=== PATIENT | male | born 1955 | race Hispanic/Latino ===

== ENCOUNTER 2016-12-15 14:50 | Outpatient (CLI) | payer MEDICAID ==
--- NOTE | 2016-12-16 09:20 | Ultrasound Report ---
Complete abdominal exam: Abdominal pain/nausea. Images of the liver demonstrates a 13 mm discrete hyperechogenic area in the lateral right lobe. A somewhat less discrete area of echogenicity is identified in superior right lobe measuring approximately 26 mm in size. The spleen is slightly prominent in size but otherwise unremarkable. The pancreas is echogenic but otherwise normal. There is some question of mild echogenicity layering in the gallbladder that may represent sludge. The gallbladder is not otherwise remarkable. The transverse diameter of the CBD is 5 mm. The right renal length is 11.5 cm. There is a small cortical cyst measuring 1 cm. The left renal length is 13.5 cm. Both kidneys are otherwise echogenically unremarkable. Transverse diameter of the proximal abdominal aorta is 2.4 cm. Impressions: 1. The echogenic liver foci are consistent with hemangiomas. 2. Fatty pancreas. Recommendation: Three-phase CT scan to confirm hemangiomas of the liver.
== END 2016-12-15 14:51 | disposition home or self-care (01) ==
LOC: US 14:50
PROVIDERS: ATTEND Nurse Practitioner Family
DX: N28.1 Cyst of kidney, acquired (principal); K86.89 Other specified diseases of pancreas
CPT/HCPCS: 76700

== ENCOUNTER 2019-04-22 18:05 | Emergency (ER) | payer MEDICAID, OTHER ==
[2019-04-22 19:58] VITALS: BP 147/77
[2019-04-22] MEDS ORDERED: IBUPROFEN PO ONE (21:14)
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
== END 2019-04-22 21:22 | disposition left against medical advice (07) ==
LOC: ED 18:05
DX: Z04.1 Encounter for examination and observation following transport accident (principal); Z53.21 Procedure and treatment not carried out due to patient leaving prior to being seen by health care provider

== ENCOUNTER 2020-06-12 19:20 | Emergency (ER) | payer MEDICAID ==
[2020-06-12 21:08] LABS: BUN/Creatinine Ratio 14; Blood Urea Nitrogen 11 mg/dL (9-20); Calcium 8.9 mg/dL (8.4-10.2); Hemolysis Index 24
[2020-06-12 21:13] LABS: Basophils % (Auto) 0.5 % (0.0-1.8); Eosinophils # (Auto) 0.2 K/mm3 (0.0-0.4); Eosinophils % (Auto) 4.2 % (0.0-4.3); Hematocrit 44.6 % (35.5-45.6); Hemoglobin 15.5 gm/dl (11.8-15.2); Lymphocytes # (Auto) 1.7 K/mm3 (1.2-5.4); Lymphocytes % (Auto) 33.5 % (13.4-35.0); Mean Corpuscular HGB Conc 35 % (32-34); Mean Corpuscular Volume 89 fl (84-94); Monocytes # (Auto) 0.3 K/mm3 (0.0-0.8); Monocytes % (Auto) 5.4 % (0.0-7.3); Platelet Count 199 K/mm3 (140-440); Red Blood Count 5.02 M/mm3 (3.65-5.03); Red Cell Distribution Width 14.2 % (13.2-15.2)
[2020-06-12] MEDS ORDERED: SODIUM CHLORIDE 0.9% 1000 ML 1,000 ML IV ONE ×2 (21:18)
[2020-06-12] MEDS ORDERED: INSULIN REGULAR, HUMAN 100 UNIT/ML 3ML VIAL IV ONE (21:19)
[2020-06-12] MEDS ORDERED: INSULIN REGULAR, HUMAN 100 UNITS/1 ML ONE (21:30)
[2020-06-12] MEDS ORDERED: HYDROcodone/ACETAMINOPHEN 5-325 MG TAB PO ONE (21:43)
[2020-06-12 22:48] LABS: Bilirubin,Urine NEG (Negative); Blood,Urine NEG (Negative); Color,Urine Yellow (Yellow); Mucus,Urine FEW /HPF; Protein,Urine <15 mg/dL mg/dL (Negative); WBC,Urine < 1.0 /HPF (0.0-6.0)
--- NOTE | 2020-06-12 23:08 | Emergency Department Report ---
ED General Adult HPI - General Chief complaint: Skin/Abscess/Foreign Body Stated complaint: BOIL/SORE IN GROIN AREA Time Seen by Provider: 06/12/20 20:06 Source: patient Mode of arrival: Ambulatory Limitations: No Limitations - History of Present Illness Initial comments: 65-year-old male patient with history of hypertension and diabetes presents with complaints of an itchy painful rash in his groin area x1 week. He rates his current pain is 8/10 in severity and states that he also had a few small areas of drainage that have resolved. Patient denies any fever/chills/sweats, penile lesions, penile discharge, dysuria/hematuria, or testicular swelling. He does report that the rash is on his testicles and penis. Patient also states he has been off of his diabetic medications for the past month Severity scale (0 -10): 4 - Related Data Previous Rx's Medication Instructions Recorded Last Taken Type oxyCODONE /ACETAMINOPHEN [Percocet 1 tab PO Q6HR PRN #20 tablet 02/23/15 Unknown Rx 5/325] Clotrimazole 1% [Lotrimin 1%] 1 applic TP BID 14 Days #1 tube 06/12/20 Unknown Rx Fluconazole (Nf) [Diflucan TAB] 150 mg PO ONCE #1 tablet 06/12/20 Unknown Rx Sulfamethoxazole/Trimethoprim 1 each PO BID 10 Days #20 tablet 06/12/20 Unknown Rx [Bactrim DS TAB] Losartan [Cozaar] 100 mg PO QDAY 30 Days #30 tablet 06/13/20 Unknown Rx glipiZIDE [Glucotrol] 10 mg PO BID 30 Days #60 tab 06/13/20 Unknown Rx Allergies Allergy/AdvReac Type Severity Reaction Status Date / Time No Known Allergies Allergy Unverified 07/02/13 22:01 ED Review of Systems ROS: Stated complaint: BOIL/SORE IN GROIN AREA Other details as noted in HPI ED Past Medical Hx - Past Medical History Previous Medical History?: Yes Hx Hypertension: Yes Hx Diabetes: Yes Hx COPD: Yes Additional medical history: hep C (states "I got rid of that") - Surgical History Past Surgical History?: Yes Additional Surgical History: back and leg surgery. Hardware left lower leg. - Social History Smoking Status: Former Smoker Substance Use Type: None - Medications Home Medications: Home Medications Medication Instructions Recorded Confirmed Last Taken Type oxyCODONE /ACETAMINOPHEN [Percocet 1 tab PO Q6HR PRN #20 tablet 02/23/15 Unknown Rx 5/325] Clotrimazole 1% [Lotrimin 1%] 1 applic TP BID 14 Days #1 tube 06/12/20 Unknown Rx Fluconazole (Nf) [Diflucan TAB] 150 mg PO ONCE #1 tablet 06/12/20 Unknown Rx Sulfamethoxazole/Trimethoprim 1 each PO BID 10 Days #20 tablet 06/12/20 Unknown Rx [Bactrim DS TAB] Losartan [Cozaar] 100 mg PO QDAY 30 Days #30 tablet 06/13/20 Unknown Rx glipiZIDE [Glucotrol] 10 mg PO BID 30 Days #60 tab 06/13/20 Unknown Rx ED Physical Exam - General Limitations: No Limitations General appearance: alert, in no apparent distress - Head Head exam: Present: atraumatic, normocephalic - Eye Eye exam: Present: normal appearance. Absent: scleral icterus - Neck Neck exam: Present: normal inspection - Respiratory Respiratory exam: Present: normal lung sounds bilaterally. Absent: respiratory distress - Cardiovascular Cardiovascular Exam: Present: regular rate, normal rhythm. Absent: systolic murmur, diastolic murmur, rubs, gallop - GI/Abdominal GI/Abdominal exam: Present: soft. Absent: tenderness - exam: Absent: testicular tenderness, urethral discharge, scrotal swelling External exam: Present: other (Petechial satellite-like rash noted to scrotal and penile shaft and suprapubic region; no cellulitic changes ; there is a small 1 cm open draining abscess noted to right groin ). Absent: swelling, ecchymosis - Neurological Exam Neurological exam: Present: alert, oriented X3 - Psychiatric Psychiatric exam: Present: normal affect, normal mood - Skin Skin exam: Present: warm, dry, intact, normal color ED Course Vital Signs 06/12/20 19:40 Temperature 98.6 F Pulse Rate 98 H Respiratory 18 Rate Blood Pressure 148/86 O2 Sat by Pulse 97 Oximetry ED Medical Decision Making - Lab Data Result diagrams: 06/12/20 20:24 06/12/20 20:24 Lab Results 06/12/20 06/12/20 06/12/20 Range/Units 20:24 20:24 22:14 WBC 5.2 (4.5-11.0) K/mm3 RBC 5.02 (3.65-5.03) M/mm3 Hgb 15.5 H (11.8-15.2) gm/dl Hct 44.6 (35.5-45.6) % MCV 89 (84-94) fl MCH 31 (28-32) pg MCHC 35 H (32-34) % RDW 14.2 (13.2-15.2) % Plt Count 199 (140-440) K/mm3 Lymph % (Auto) 33.5 (13.4-35.0) % [place] % (Auto) 5.4 (0.0-7.3) % Eos % (Auto) 4.2 (0.0-4.3) % Baso % (Auto) 0.5 (0.0-1.8) % Lymph # (Auto) 1.7 (1.2-5.4) K/mm3 [place] # (Auto) 0.3 (0.0-0.8) K/mm3 Eos # (Auto) 0.2 (0.0-0.4) K/mm3 Baso # (Auto) 0.0 (0.0-0.1) K/mm3 Seg Neutrophils % 56.4 (40.0-70.0) % Seg Neutrophils # 2.9 (1.8-7.7) K/mm3 Sodium 130 L (137-145) mmol/L Potassium 3.7 (3.6-5.0) mmol/L Chloride 93.1 L (98-107) mmol/L Carbon Dioxide 25 (22-30) mmol/L Anion Gap 16 mmol/L BUN 11 (9-20) mg/dL Creatinine 0.8 (0.8-1.3) mg/dL Estimated GFR > 60 ml/min BUN/Creatinine Ratio 14 % Glucose 474 H (75-100) mg/dL Calcium 8.9 (8.4-10.2) mg/dL Urine Color Yellow (Yellow) Urine Turbidity Clear (Clear) Urine pH 7.0 (5.0-7.0) Ur Specific [place] 1.031 H (1.003-1.030) Urine Protein <15 mg/dl (Negative) mg/dL Urine Glucose (UA) >=500 (Negative) mg/dL Urine Ketones Neg (Negative) mg/dL Urine Blood Neg (Negative) Urine Nitrite Neg (Negative) Urine Bilirubin Neg (Negative) Urine Urobilinogen 4.0 (<2.0) mg/dL Ur Leukocyte Esterase Neg (Negative) Urine WBC (Auto) < 1.0 (0.0-6.0) /HPF Urine RBC (Auto) 2.0 (0.0-6.0) /HPF Urine Mucus Few /HPF - Medical Decision Making 65-year-old male patient with history of hypertension and diabetes presents with complaints of an itchy painful rash in his groin area x1 week. He rates his current pain is 8/10 in severity and states that he also had a few small areas of drainage that have resolved. Patient denies any fever/chills/sweats, penile lesions, penile discharge, dysuria/hematuria, or testicular swelling. He does report that the rash is on his testicles and penis. Patient also states he has been off of his diabetic medications for the past month. On exam, rash noted to the groin area that appears to be fungal in origin. Glucose noted to be in the 400s. Patient given IV insulin and 2 L of saline. Glucose now 84. Patient given apple juice and crackers. His vitals are normal, he is well-appearing, and stable for discharge home. Refills given of his glipizide and losartan. Recommend follow-up with primary care within 3 days. Will treat rash with clotrimazole, fluconazole, and Bactrim. Strict return precautions were discussed in detail with patient who verbalized understanding Critical care attestation.: If time is entered above; I have spent that time in minutes in the direct care of this critically ill patient, excluding procedure time. ED Disposition Clinical Impression: Rash of groin Uncontrolled type 2 diabetes mellitus Qualifiers: Glycemic state: with hyperglycemia Qualified Code(s): E11.65 - Type 2 diabetes mellitus with hyperglycemia Disposition: DC-01 TO HOME OR SELFCARE Is pt being admited?: No Condition: Stable Instructions: Diabetes Mellitus Type 2 in Adults (ED), César Dykes (ED) Prescriptions: Sulfamethoxazole/Trimethoprim [Bactrim DS TAB] 1 each PO BID 10 Days #20 tablet Losartan [Cozaar] 100 mg PO QDAY 30 Days #30 tablet Fluconazole (Nf) [Diflucan TAB] 150 mg PO ONCE #1 tablet glipiZIDE [Glucotrol] 10 mg PO BID 30 Days #60 tab Clotrimazole 1% [Lotrimin 1%] 1 applic TP BID 14 Days #1 tube Referrals: LESLY BOLTON MD [Primary Care Provider] - 3-5 Days
[2020-06-13 00:25] VITALS: BP 132/75
== END 2020-06-13 00:23 | disposition home or self-care (01) ==
LOC: ED 19:20
DX: E11.65 Type 2 diabetes mellitus with hyperglycemia (principal); R21 Rash and other nonspecific skin eruption; I10 Essential (primary) hypertension; J44.9 Chronic obstructive pulmonary disease, unspecified; Z87.891 Personal history of nicotine dependence; Z79.899 Other long term (current) drug therapy; Z98.890 Other specified postprocedural states
CPT/HCPCS: 36415; 80048; 81001; 82962; 85025; 96361; 96374; 99284; J7030; J1815

== ENCOUNTER 2021-08-03 14:01 | Emergency (ER) | payer MEDICARE, MEDICAID ==
[2021-08-03] MEDS ORDERED: ONDANSETRON 4 MG/2 ML INJ IM ONE (14:47)
[2021-08-03] MEDS ORDERED: fentaNYL 100 MCG/2 ML INJ IM ONE (14:47)
--- NOTE | 2021-08-03 14:50 | Emergency Department Report ---
HPI - General Chief Complaint: Fall Time Seen by Provider: 08/03/21 14:16 - HPI HPI: MSE 5 The patient is a 66-year-old male present with a chief complaint of neck pain after fall. Patient states he had a cervical fusion performed approximate 1.[address] Antonio ([phone]) at [facility]. Patient states since his surgery he has fallen several times and this morning he says he noticed numbness in his right forearm and continued pain in his neck. The patient states he has had right lower extremity paralysis preceding the surgery and now and since the surgery he still has the paralysis but has regained some sensation. The patient states he contacted his spinal surgeon today and was told he needed an MRI. ED Past Medical Hx - Past Medical History Hx Hypertension: Yes Hx Diabetes: Yes Hx COPD: Yes Additional medical history: hep C (states "I got rid of that") - Surgical History Additional Surgical History: back and leg surgery. Hardware left lower leg. - Family History Family history: no significant - Social History Smoking Status: Current Some Day Smoker Substance Use Type: None (Denies illicit drug use) - Medications Home Medications: Home Medications Medication Instructions Recorded Confirmed Last Taken Type oxyCODONE /ACETAMINOPHEN [Percocet 1 tab PO Q6HR PRN #20 tablet 02/23/15 Unknown Rx 5/325] Clotrimazole 1% [Lotrimin 1%] 1 applic TP BID 14 Days #1 tube 06/12/20 Unknown Rx Fluconazole (Nf) [Diflucan TAB] 150 mg PO ONCE #1 tablet 06/12/20 Unknown Rx Sulfamethoxazole/Trimethoprim 1 each PO BID 10 Days #20 tablet 06/12/20 Unknown Rx [Bactrim DS TAB] Losartan [Cozaar] 100 mg PO QDAY 30 Days #30 tablet 06/13/20 Unknown Rx glipiZIDE [Glucotrol] 10 mg PO BID 30 Days #60 tab 06/13/20 Unknown Rx ED Review of Systems ROS: Stated complaint: FALL Other details as noted in HPI Constitutional: no symptoms reported Eyes: denies: eye pain ENT: denies: throat pain Respiratory: no symptoms reported Cardiovascular: denies: chest pain Endocrine: no symptoms reported Gastrointestinal: denies: abdominal pain Genitourinary: denies: dysuria Musculoskeletal: arthralgia, myalgia Neurological: denies: headache Physical Exam - Physical Exam Vital Signs: Vital Signs 08/03/21 08/03/21 14:02 14:17 Temperature 98.8 F 98.8 F Pulse Rate 116 H 102 H Respiratory 18 18 Rate Blood Pressure 109/80 [Right] O2 Sat by Pulse 99 99 Oximetry Physical Exam: GENERAL: The patient is well-developed well-nourished male sitting in wheelchair not appearing to be in acute distress. [] HEENT: Normocephalic. Atraumatic. Extraocular motions are intact. Patient has moist mucous membranes. NECK: Supple. Anterior surgical site clean dry and intact. CHEST/LUNGS: Clear to auscultation. There is no respiratory distress noted. HEART/CARDIOVASCULAR: Regular. There is no tachycardia. There is no gallop rub or murmur. ABDOMEN: Abdomen is soft, nontender. Patient has normal bowel sounds. There is no abdominal distention. SKIN: There is no rash. There is no edema. There is no diaphoresis. NEURO: The patient is awake, alert, and oriented. The patient is cooperative. The patient has normal speech. Patient complains of slight paresthesia circumferentially around the entire right forearm and hand stopping at the antecubital fossa. Patient has normal function of the radial ulnar and median nerves MUSCULOSKELETAL: There is no evidence of acute injury. ED Course Vital Signs 08/03/21 08/03/21 14:02 14:17 Temperature 98.8 F 98.8 F Pulse Rate 116 H 102 H Respiratory 18 18 Rate Blood Pressure 109/80 [Right] O2 Sat by Pulse 99 99 Oximetry - Consultations Consultation #1: 08/03/21 17:52 Patient's spinal surgeon called 08/03/21 18:13 Case d/w patient spinal surgeon Dr. Edgar- states no steroids needed at this time. Patient originally refused rehab. Patient has appointment in the office tomorrow at 9 AM if he keeps his appointment he will be referred to internal medicine for admission and rehab placement. ED Medical Decision Making - Radiology Data Radiology results: report reviewed (MRI cervical spine), image reviewed (MRI cervical spine) [facility] [address] [place] [address] Magnetic Resonance Report Signed Patient: ILANA BABB MR#: [id number] : 1955 Acct:[id number] Age/Sex: 66 / M ADM Date: 08/03/21 Loc: ED Attending Dr: Ordering Physician: INES BACH MD Date of Service: 08/03/21 Procedure(s): MR cervical spine wo con Accession Number(s): [id number] cc: INES BACH MD MR cervical spine wo con INDICATION / CLINICAL INFORMATION: 66 years Male; RUE numbness and neck pain after fall. recent surg. TECHNIQUE: Multisequence, multiplanar images of the cervical spine were obtained. Significant motion artifact COMPARISON: None available. FINDINGS: POST-SURGICAL CHANGES: Anterior fusion hardware seen at C5-6 and perhaps C6-7 CRANIOCERVICAL JUNCTION:No significant abnormality. ALIGNMENT: No significant abnormality. VERTEBRAE:Grossly normal marrow signal and vertebral body height for age. VISUALIZED SPINAL CORD: See below. INTERVERTEBRAL DISCS: Multilevel disc kelley ccation noted. [id number] ANALYSIS: C2-3: Mild facet hypertrophy. C3-4: Mild to moderate disc bulge. Moderate to marked foraminal narrowing on the left and moderate on the right from uncinate and facet hypertrophy. Findings might affect the left C4 nerve. There is also encroachment upon and deformity the cervical cord. Borderline cord edema suggested; however, this is difficult to evaluate because of motion. C4-5: Mild disc bulge and broad-based right paracentral disc protrusion. Mild canal narrowing. Moderate foraminal narrowing on the right and to a slightly lesser degree on the left, from uncinate hypertrophy, which could affect C5 nerves. C5-6: As above. Significant canal narrowing seen which encroaches upon and may flatten the cervical cord. Borderline cord edema suggested. Foraminal narrowing noted bilaterally from uncinate facet hypertrophy. C6-7: As above. Canal narrowing which encroaches upon and mild flattens the cervical cord-mild edema may be present. Foraminal narrowing noted bilaterally. C7-T1: Mild disc bulge and moderate facet hypertrophy-right greater than left. PARASPINAL SOFT TISSUES: No significant abnormality. ADDITIONAL FINDINGS: None. IMPRESSION: 1. Degenerative and postoperative changes of the cervical spine, as described above. Areas of canal narrowing seen at C3-4, C5-6, C6-7. Myelography may be helpful for further evaluation, as motion significant ly degrades this exam. 2. Multilevel foraminal narrowing as described above, which may affect the exiting nerve roots. Please correlate with dermatomal distribution of patient's symptoms, if present. Signer Name: Joey Griffin MD, III Signed: 08/03/2021 5:26 PM Workstation Name: [email or web address] Transcribed By: HR Dictated By: Joey Griffin MD Electronically Authenticated By: Joey Griffin MD Signed Date/Time: 08/03/211725 DD/ 16 TD/TT: Print Cancel - Differential Diagnosis Cervical radiculopathy Critical care attestation.: If time is entered above; I have spent that time in minutes in the direct care of this critically ill patient, excluding procedure time. ED Disposition Clinical Impression: Spinal stenosis, Cervical radiculopathy Disposition: 01 HOME / SELF CARE / HOMELESS Is pt being admited?: No Does the pt Need Aspirin: No Condition: Stable Instructions: Spinal Stenosis, Cervical Radiculopathy Additional Instructions: Return to the emergency department should you develop worsening symptoms, inability to tolerate food or liquids, high fever or any other concerns Referrals: JAMEY GARCIA MD [Primary Care Provider] - 3-[address] Antonio, spinal surgery [Other] - 08/04/21 Time of Disposition: 18:15
[2021-08-03] MEDS ORDERED: HYDROmorphone 1 MG/1 ML INJ IM ONE (15:28)
[2021-08-03] MEDS ORDERED: diphenhydrAMINE 50 MG/ML VIAL IV ONE (15:50)
[2021-08-03] MEDS ORDERED: fentaNYL 100 MCG/2 ML INJ IV ONE (16:10)
[2021-08-03] MEDS ORDERED: ETOMIDATE 20 MG/10 ML INJ IV ONE ×2 (16:26)
--- NOTE | 2021-08-03 17:31 | Magnetic Resonance Report ---
MR cervical spine wo con INDICATION / CLINICAL INFORMATION: 66 years Male; RUE numbness and neck pain after fall. recent surg. TECHNIQUE: Multisequence, multiplanar images of the cervical spine were obtained. Significant motion artifact COMPARISON: None available. FINDINGS: POST-SURGICAL CHANGES: Anterior fusion hardware seen at C5-6 and perhaps C6-7 CRANIOCERVICAL JUNCTION:No significant abnormality. ALIGNMENT: No significant abnormality. VERTEBRAE:Grossly normal marrow signal and vertebral body height for age. VISUALIZED SPINAL CORD: See below. INTERVERTEBRAL DISCS: Multilevel disc desiccation noted. [id number] ANALYSIS: C2-3: Mild facet hypertrophy. C3-4: Mild to moderate disc bulge. Moderate to marked foraminal narrowing on the left and moderate on the right from uncinate and facet hypertrophy. Findings might affect the left C4 nerve. There is als o encroachment upon and deformity the cervical cord. Borderline cord edema suggested; however, this i s difficult to evaluate because of motion. C4-5: Mild disc bulge and broad-based right paracentral disc protrusion. Mild canal narrowing. Modera te foraminal narrowing on the right and to a slightly lesser degree on the left, from uncinate hypert rophy, which could affect C5 nerves. C5-6: As above. Significant canal narrowing seen which encroaches upon and may flatten the cervical c ord. Borderline cord edema suggested. Foraminal narrowing noted bilaterally from uncinate facet hyper trophy. C6-7: As above. Canal narrowing which encroaches upon and mild flattens the cervical cord-mild edema may be present. Foraminal narrowing noted bilaterally. C7-T1: Mild disc bulge and moderate facet hypertrophy-right greater than left. PARASPINAL SOFT TISSUES: No significant abnormality. ADDITIONAL FINDINGS: None. IMPRESSION: 1. Degenerative and postoperative changes of the cervical spine, as described above. Areas of canal narrowing seen at C3-4, C5-6, C6-7. Myelography may be helpful for further evaluation, as motion sign ificantly degrades this exam. 2. Multilevel foraminal narrowing as described above, which may affect the exiting nerve roots. Pleas e correlate with dermatomal distribution of patient's symptoms, if present. Signer Name: Joey Griffin MD, III Signed: 08/03/2021 5:26 PM Workstation Name: [id number]
[2021-08-03 18:22] VITALS: BP 139/79
== END 2021-08-03 21:10 | disposition home or self-care (01) ==
LOC: ED 14:01
DX: M48.02 Spinal stenosis, cervical region (principal); M54.12 Radiculopathy, cervical region; I10 Essential (primary) hypertension; E11.9 Type 2 diabetes mellitus without complications; J44.9 Chronic obstructive pulmonary disease, unspecified; F17.200 Nicotine dependence, unspecified, uncomplicated; W18.39XA Other fall on same level, initial encounter; Y93.89 Activity, other specified; Y92.89 Other specified places as the place of occurrence of the external cause; Y99.8 Other external cause status
CPT/HCPCS: 72141; 96372; 96374; 96375; 99283; J1170; J1200; J2405; J3010; J3490

== ENCOUNTER 2021-12-27 14:18 | Emergency (ER) | payer MEDICARE ==
[2021-12-27] MEDS ORDERED: ONDANSETRON 4 MG/2 ML INJ IM ONE (14:46)
[2021-12-27] MEDS ORDERED: HYDROmorphone 1 MG/1 ML INJ IM ONE ×2 (14:46→15:11)
--- NOTE | 2021-12-27 14:51 | Emergency Department Report ---
HPI - General Chief Complaint: Extremity Problem,Nontraumatic Time Seen by Provider: 12/27/21 14:45 - HPI HPI: 3 months ago the patient had a cervical laminectomy followed by a cervical fusion 2-1/2 weeks prior to arrival at [facility]. The patient got discharged on gabapentin which he has been taking 3600 mg a day as well as [place] but the pain has been unbearable. He has run out of all his medicines. He is describing severe bilateral lower extremity burning-like pain that comes in waves and electric-like. Movement of his neck makes the pain worse. The patient denies weakness as well as any continence issues. He also denies nausea vomiting fever chills focal weakness headache or any other associated symptoms. ED Past Medical Hx - Past Medical History Hx Hypertension: Yes Hx Diabetes: Yes Hx COPD: Yes Additional medical history: hep C (states "I got rid of that") - Surgical History Additional Surgical History: back and leg surgery. Hardware left lower leg. - Social History Smoking Status: Current Some Day Smoker Substance Use Type: None (Denies illicit drug use) - Medications Home Medications: Home Medications Medication Instructions Recorded Confirmed Last Taken Type oxyCODONE /ACETAMINOPHEN [Percocet 1 tab PO Q6HR PRN #20 tablet 02/23/15 Unknown Rx 5/325] Clotrimazole 1% [Lotrimin 1%] 1 applic TP BID 14 Days #1 tube 06/12/20 Unknown Rx Fluconazole (Nf) [Diflucan TAB] 150 mg PO ONCE #1 tablet 06/12/20 Unknown Rx Sulfamethoxazole/Trimethoprim 1 each PO BID 10 Days #20 tablet 06/12/20 Unknown Rx [Bactrim DS TAB] Losartan [Cozaar] 100 mg PO QDAY 30 Days #30 tablet 06/13/20 Unknown Rx glipiZIDE [Glucotrol] 10 mg PO BID 30 Days #60 tab 06/13/20 Unknown Rx Oxycodone HCl/Acetaminophen 1 each PO Q6HR PRN 5 Days #20 tab 12/27/21 Unknown Rx [Percocet 10/325 mg] ED Review of Systems ROS: Stated complaint: RT SEVERE LEG PAIN Other details as noted in HPI Comment: All other systems reviewed and negative Physical Exam - Physical Exam Vital Signs: Vital Signs 12/27/21 14:20 Temperature 98.6 F Pulse Rate 109 H Respiratory 18 Rate Blood Pressure 159/98 [Left] O2 Sat by Pulse 100 Oximetry Physical Exam: Physical Exam: Constitutional: AAOX3. Moderate to severe distress. No diaphoresis. HENT: Normocephalic. Pupils equal and reactive. No throat edema or erythema. Neck: No neck rigidity or tenderness. Cardiovascular: Heart sounds: No murmur. Normal rate and regular rhythm. Pulses: Intact distal pulses. Lungs: No wheezing or rales. Chest wall: No tenderness. Abdominal: No distension. No mass/pulsatile mass. No abdominal tenderness, guarding nor rebound. Musculoskeletal: Normal range of motion. No edema, No calf TTP. Skin: Warm and dry. Neurological: Alert and oriented to person, place, and time. The patient has +1 DTRs in bilateral patellar and Achilles tendons. Sensation is grossly intact in his bilateral lower extremities. He also has bilateral lower extremity normal strength. Psychiatric: Mood and affect normal. Normal cognition and memory. Normal judgement. ED Course Vital Signs 12/27/21 14:20 Temperature 98.6 F Pulse Rate 109 H Respiratory 18 Rate Blood Pressure 159/98 [Left] O2 Sat by Pulse 100 Oximetry Critical care attestation.: If time is entered above; I have spent that time in minutes in the direct care of this critically ill patient, excluding procedure time. ED Disposition Clinical Impression: Chronic pain Disposition: 01 HOME / SELF CARE / HOMELESS Is pt being admited?: No Does the pt Need Aspirin: No Condition: Stable Instructions: Pain Medicine Instructions, [id number], Opioid Pain Medicine Management Additional Instructions: Make sure to follow-up with the surgeon that did your surgery. You should also follow-up with a pain medicine specialist. Prescriptions: Oxycodone HCl/Acetaminophen [Percocet 10/325 mg] 1 each PO Q6HR PRN 5 Days #20 tab PRN Reason: Pain Print Language: ALGERIAN
[2021-12-27] MEDS ORDERED: LORazepam 2 MG/ML VIAL IM ONE (15:12)
[2021-12-27] MEDS ORDERED: HYDROmorphone 2 MG/1 ML INJ IV ONE (15:22)
[2021-12-27] MEDS ORDERED: LORazepam 2 MG/ML VIAL IV ONE (15:23)
[2021-12-27 17:20] VITALS: BP 109/76
== END 2021-12-27 17:18 | disposition home or self-care (01) ==
LOC: ED 14:18
DX: G89.4 Chronic pain syndrome (principal); M79.604 Pain in right leg; I10 Essential (primary) hypertension; E11.9 Type 2 diabetes mellitus without complications; F17.200 Nicotine dependence, unspecified, uncomplicated
CPT/HCPCS: 96372; 96374; 96375; 99283; J1170; J2060; J2405